=== PATIENT | male | born 1995 | race Caucasian/White ===

== ENCOUNTER 2016-09-23 19:58 | Emergency (ER) | payer MEDICAID ==
[2016-09-23] MEDS ORDERED: LIDOCAINE 2% ABBOJECT 100 MG/5 ML SYRINGE ONE (20:41)
[2016-09-23] MEDS ORDERED: LIDOCAINE 2%-EPI 1:100000 20 ML MDV ONE (20:42)
[2016-09-23] MEDS ORDERED: CLINDAMYCIN 150 MG CAPSULE PO STA (21:37)
[2016-09-23] MEDS ORDERED: oxyCOD/ACETAMIN 5 MG/325 MG TABLET PO STA (21:37)
[2016-09-23] MEDS ORDERED: oxyCODONE/ACET 5/325 Prepack 4 PO STA (21:37)
[2016-09-23] MEDS ORDERED: oxyCOD/ACETAMIN 5 MG/325 MG TABLET PO ONE (21:51)
[2016-09-23] MEDS ORDERED: oxyCODONE/ACET 5/325 Prepack 4 PO ONE (21:51)
[2016-09-23] MEDS ORDERED: CLINDAMYCIN 150 MG CAPSULE PO ONE (21:51)
== END 2016-09-23 22:00 | disposition home or self-care (01) ==
DX: L60.0 Ingrowing nail (principal); L02.612 Cutaneous abscess of left foot
CPT/HCPCS: 10060; 11730; 99283; A9270